=== PATIENT | female | born 1995 | race Caucasian/White ===

== ENCOUNTER 2016-06-20 17:37 | Emergency (ER) | payer OTHER ==
[~2016-06-20] VITALS: Ht 157.5 cm; Wt 127.0 kg
[2016-06-20 17:43] VITALS: BP 164/115; PULSE 118; RESP 20; TEMP 98; O2SAT 98
--- NOTE | 2016-06-20 17:47 | NUR ---
Pt placed to ER bed 2 and to gown. Pt report given to SELENA Shoemaker.
--- NOTE | 2016-06-20 17:56 | NUR ---
Patient to ER C/O acute chest wall pain 10/08, started this afternoon, substernal non-radiating, localized over left upper chest area, denies N/V, denies numbness/tingling. In addition patient C/O right hip pain for a few days and urinary pain with burning for 3 days. Denies cough, afebrile. AAOx4, unlabored breathing, no signs of acute distress.
--- NOTE | 2016-06-20 18:11 | NUR ---
Dr. Rosenthal at bedside examining patient.
[2016-06-20] MEDS ORDERED: KETOROLAC TROMETHAMINE 60 MG/2 ML VIAL IM ONE (18:15)
[2016-06-20 18:29] LABS: BILIRUBIN,URINE NEGATIVE (NEGATIVE); BLOOD, URINE NEGATIVE (NEGATIVE); CLARITY/URINE HAZY (CLEAR); COLOR,URINE YELLOW (YELLOW); GLUCOSE,URINE NEGATIVE (NEGATIVE); KETONES,URINE NEGATIVE (NEGATIVE); LEUKOCYTE ESTERASE ,URINE NEGATIVE (NEGATIVE); NITRITE, URINE NEGATIVE (NEGATIVE); PH,URINE 6.5 (5.0-8.0); PROTEIN URINE NEGATIVE (NEGATIVE); UROBILINOGEN,URINE 0.2 (0.2-1.0)
--- NOTE | 2016-06-20 18:30 | NUR ---
# 22 gauge angiocath placed to right forearm. Use of asceptic technique. Opsite placed over site. Blood return noted. Flushed with 10 cc of normal saline. No evidence of infiltration noted. Patient tolerated well.
[2016-06-20 18:38] LABS: BASOPHILS # (AUTO) 0.1 K/uL (0.0-0.2); BASOPHILS % (AUTO) 0.6 % (0.0-2.0); EOSINOPHILS # (AUTO) 0.2 K/uL (0.0-0.4); EOSINOPHILS % (AUTO) 1.5 % (0.0-4.0); HEMATOCRIT 36.8 % (36-48); HEMOGLOBIN 12.4 g/dL (12.0-16.0); LYMPHOCYTES # (AUTO) 3.2 K/uL (1.0-5.5); MEAN CORPUSCULAR HEMOGLOBIN 23 pg (27-31); MEAN CORPUSCULAR HGB CONC 34 % (32-36); MEAN CORPUSCULAR VOLUME 69 fL (79.0-98.0); MONOCYTES # (AUTO) 0.8 K/uL (0.0-1.0); MONOCYTES % (AUTO) 5.6 % (1.7-9.3); NEUTROPHILS # (AUTO) 9.4 K/uL (1.8-7.7); NEUTROPHILS % (AUTO) 69.3 % (40.0-70.0); PLATELET COUNT (AUTO) 358 K/uL (130-430); RED BLOOD CELL COUNT(AUTO) 5.36 MIL/uL (4.2-6.2); RED CELL DISTRIBUTION WIDTH 14.6 % (9.0-15.0); WHITE BLOOD COUNT (AUTO) 13.7 K/uL (4.5-11.0)
[2016-06-20] MEDS ORDERED: KETOROLAC TROMETHAMINE 30 MG VIAL IVP ONE (18:45)
[2016-06-20] MEDS ORDERED: LORazepam 2 MG/ML VIAL (FOR ER USE) IVP ONE (18:45)
[2016-06-20 18:51] LABS: BARBITURATE, URINE NEGATIVE (NEG <=200); BENZODIAZEPINE, URINE NEGATIVE (NEG <=150); CANNABINOID, URINE NEGATIVE (NEG <=50); COCAINE, URINE NEGATIVE (NEG <=150); METHAMPHETAMINES SCREEN,URINE NEGATIVE (NEG <=500); OPIATE, URINE NEGATIVE (NEG <=100); PHENCYCLIDINE SCREEN,URINE NEGATIVE (NEG <=25); UR TRICYCLIC ANTIDEPRESSANTS NEGATIVE (NEG <=300); URINE AMPHETAMINE NEGATIVE (NEG <=500); URINE METHADONE NEGATIVE (NEG <=200); URINE OXYCODONE SCREEN NEGATIVE (NEG <=100); URINE PROPOXYPHENE SCREEN NEGATIVE (NEG <=300)
[2016-06-20 18:56] LABS: BACTERIA,URINE MANY /HPF (None Seen); MUCUS,URINE None Seen /LPF (None Seen); RBC,URINE 0-3 /HPF (0-3)
[2016-06-20 18:57] LABS: ALANINE AMINOTRANSFERASE 56 U/L (12-78); ALBUMIN 3.5 g/dL (3.4-4.8); ANION GAP 9 (5-15); ASPARTATE AMINOTRANSFERASE 31 U/L (10-37); CALCIUM 9.2 mg/dL (8.4-11.0); CHLORIDE 103 mmol/L (98-107); CREATININE 0.82 mg/dL (0.55-1.30); GLUCOSE 102 mg/dL (70-99); POTASSIUM 3.8 mmol/L (3.5-5.1); SODIUM SERUM 138 mmol/L (136-145); TOTAL BILIRUBIN 0.2 mg/dL (0.0-1.0); TOTAL PROTEIN, SERUM 7.9 g/dL (6.4-8.3); UREA NITROGEN, BLOOD 10 mg/dL (8-21)
--- NOTE | 2016-06-20 19:00 | NUR ---
Patient medicated as ordered.Medication administered slowly over 5 minutes as ordered.
[2016-06-20 19:07] LABS: GFR AFRICAN AMERICAN 114 mL/min (>90)
--- NOTE | 2016-06-20 19:36 | NUR ---
ER MD Rosenthal at bedside discussing test results and BP management. Patient advised to follow up with primary and monitor BP. Patient advised to return to ER of symptoms persist.
[2016-06-20 19:49] VITALS: BP 147/91; PULSE 96; RESP 18; TEMP 98.3; O2SAT 98
--- NOTE | 2016-06-20 19:49 | NUR ---
Patient given written and verbal discharge instructions and verbalizes understanding. ER MD Rosenthal discussed with patient the results and treatment provided. Patient in stable condition. ID arm band removed. IV catheter removed intact and dressing applied, no active bleeding. Rx of flexeril given. Patient educated on pain management and to follow up with PMD. Pain Scale 0/10. Opportunity for questions provided and answered.
== END 2016-06-20 19:49 | disposition home or self-care (01) ==
LOC: SED 17:37
DX: M94.0 Chondrocostal junction syndrome [Tietze] (principal); J45.909 Unspecified asthma, uncomplicated; R10.9 Unspecified abdominal pain
CPT/HCPCS: 36415; 80053; 80307; 81000; 81025; 84484; 85025; 87086; 93005; 96374; 96375; 99285; J1885; J2060

== ENCOUNTER 2019-09-23 11:58 | Emergency (ER) | payer OTHER ==
[~2019-09-23] VITALS: Ht 157.5 cm; Wt 149.7 kg
[2019-09-23 12:00] VITALS: BP_SYST 133
--- NOTE | 2019-09-23 12:00 | NUR ---
Patient triaged and placed in waiting room. VSS and patient appears in no acute distress at this time. Accompanied by SELF, awaiting available bed, and MD notified of need for MSE.
--- NOTE | 2019-09-23 12:05 | NUR ---
Pt came to ER for intermittent R ear pain describes as lightning that goes through jaw as well. Pt resting in [facility] [place], awaiting
--- NOTE | 2019-09-23 12:10 | NUR ---
MARISOL Loaiza at bedside examining patient.
--- NOTE | 2019-09-23 14:00 | NUR ---
Pt in [facility] at this time no distress noted
--- NOTE | 2019-09-23 16:04 | NUR ---
Patient given written and verbal discharge instructions and verbalizes understanding. ER MD discussed with patient the results and treatment provided. Patient in stable condition. ID arm band removed. Rx of ciprodex 0.3%-0.1% given. Patient educated on pain management and to follow up with PMD and ENT. Pain Scale 6/10. Opportunity for questions provided and answered. Medication side effect fact sheet provided.
[2019-09-23 16:05] VITALS: BP_SYST 126
== END 2019-09-23 16:04 | disposition home or self-care (01) ==
LOC: SED 11:58
DX: H60.91 Unspecified otitis externa, right ear (principal); J45.909 Unspecified asthma, uncomplicated; Z91.013 Allergy to seafood; Z91.040 Latex allergy status
CPT/HCPCS: 99283